=== PATIENT | male | born 1975 | race Caucasian/White ===

== ENCOUNTER 2020-12-25 18:22 | Emergency (ER) | payer SELFPAY ==
[~2020-12-25] VITALS: Ht 177.8 cm; Wt 85.8 kg
--- NOTE | 2020-12-25 18:35 | NUR ---
PT WALKED BACK FROM TRIAGE WITH CHIEF COMPLAINT OF FEVER, COUGH, Fatigue, FOR PAST 11 DAYS
--- NOTE | 2020-12-25 18:48 | NUR ---
report to peg gonzalez
[2020-12-25] MEDS ORDERED: ALBUTEROL SULFATE 2.5 MG/3 ML ONE (19:23)
[2020-12-25 19:30] VITALS: BP 118/69
[2020-12-25] MEDS ORDERED: ALBUTEROL SULFATE 2.5 MG/3 ML NPPB ONE (19:30)
--- NOTE | 2020-12-25 20:02 | NUR ---
Patient given discharge instructions and they have confirmed that they understand the instructions. Patient ambulatory with steady gait. NAD, all questions answered appropriately, denies additional needs at this time. No personal belongings left in room after discharge.
== END 2020-12-25 20:08 | disposition home or self-care (01) ==
LOC: ED 20:00
DX: R06.00 Dyspnea, unspecified (principal); Z20.822 Contact with and (suspected) exposure to COVID-19; R06.02 Shortness of breath
CPT/HCPCS: 71045; 94640; 99284; J7512; J7613; U0003; U0005